=== PATIENT | male | born 1985 | race Caucasian/White ===

== ENCOUNTER 2020-12-14 08:51 | Emergency (ER) | payer OTHER ==
[~2020-12-14] VITALS: Ht 182.9 cm; Wt 106.0 kg
[2020-12-14 08:52] VITALS: BP 131/82
[2020-12-14] MEDS ORDERED: TRAZ-189 PO (09:04)
[2020-12-14] MEDS ORDERED: RITA20TA PO (09:04)
[2020-12-14] MEDS ORDERED: LYRI150C PO (09:04)
[2020-12-14] MEDS ORDERED: LEXA1TAB2 PO (09:04)
[2020-12-14] MEDS ORDERED: PROP60TA14 PO (09:04)
[2020-12-14] MEDS ORDERED: METH-1164 PO (09:04)
[2020-12-14] MEDS ORDERED: PRAZ5CAP PO (09:04)
[2020-12-14] MEDS ORDERED: CETI10CA13 PO (09:04)
[2020-12-14] MEDS ORDERED: ESOM1CAP5 PO (09:04)
[2020-12-14] MEDS ORDERED: LIDO2SOL17 PO (11:20)
[2020-12-14] MEDS ORDERED: AUGM875T28 PO (11:20)
== END 2020-12-14 12:01 | disposition home or self-care (01) ==
LOC: M ED 08:51
DX: K04.7 Periapical abscess without sinus (principal); L03.211 Cellulitis of face